=== PATIENT | female | born 1950 | race Caucasian/White ===

== ENCOUNTER 2016-12-13 09:58 | Outpatient (CLI) | payer MEDICARE, OTHER ==
[2015-09-20 13:42] VITALS: O2SAT 97
[2016-12-13 10:12] LABS: BASOPHILS % (AUTO) 1 % (0-3); EOSINOPHILS % (AUTO) 3 % (0-9); HEMATOCRIT 42 % (35-47); MEAN CORPUSCULAR HGB CONC 33.8 gm/dl (32.0-36.0); MEAN CORPUSCULAR VOLUME 90 fL (81-99); MONOCYTES % (AUTO) 8.9 % (0-12); NEUTROPHILS % (AUTO) 57.3 % (37-80)
== END 2016-12-13 09:59 | disposition home or self-care (01) | DRG 556 ==
LOC: CONVCARE 09:58
PROVIDERS: ATTEND Orthopaedic Surgery
DX: M25.562 Pain in left knee (principal); Z96.652 Presence of left artificial knee joint
CPT/HCPCS: 36415; 85025; 85651

== ENCOUNTER 2018-10-31 08:27 | Day surgery (SDC) | payer MEDICARE, OTHER ==
[2018-10-31] MEDS ORDERED: KETAMINE HYDROCHLORIDE 50 MG/ML SOL ONE (08:39)
[2018-10-31] MEDS ORDERED: FENTANYL 100MCG/2ML SOL ONE ×3 (08:39→10:57)
[2018-10-31] MEDS ORDERED: ONDANSETRON HCL 4 MG/2 ML SOL ONE (08:39)
[2018-10-31] MEDS ORDERED: MIDAZOLAM 2 MG/2 ML SOL ONE (08:39)
[2018-10-31] MEDS ORDERED: PROPOFOL 500 MG/50 ML EMU IV ONE ×2 (08:39→10:15)
[2018-10-31] MEDS ORDERED: PROPOFOL 10 MG/ML 200 MG/20 ML EMU IV ONE (10:14)
[2018-10-31] MEDS ORDERED: KETOROLAC TROMETHAMINE 30 MG/ML SOL ONE (12:03)
[2018-10-31 12:27] VITALS: RESP 16
[2018-10-31] MEDS ORDERED: APAP/HYDROCODONE 1 EACH TABLET ONE (14:31)
[2018-10-31 15:24] VITALS: BP 123/72; PULSE 60; TEMP 98.1; O2SAT 94
== END 2018-10-31 15:21 | disposition home or self-care (01) | DRG 301 ==
LOC: SURG 08:27
PROVIDERS: ATTEND Surgery
DX: I83.813 Varicose veins of bilateral lower extremities with pain (principal)
CPT/HCPCS: J1885; J2250; J2405; J3010; A6402; A9270-GY; J2704; J3490